=== PATIENT | female | born 1975 | race Caucasian/White ===

== ENCOUNTER 2023-09-26 07:21 | Emergency (ER) | payer OTHER ==
[~2023-09-26] VITALS: Ht 170.2 cm; Wt 65.8 kg
[2023-09-26 07:23] VITALS: BP 129/91; PULSE 72; RESP 19; TEMP 98.1; O2SAT 95
[2023-09-26] MEDS: LIDOCAINE 5% 1 EA PATCH TP ONE (07:46)
[2023-09-26] MEDS: IBUPROFEN 600 MG TAB PO ONE (07:46)
[2023-09-26] MEDS ORDERED: IBUP-2218 PO (08:36)
[2023-09-26] MEDS ORDERED: ACET-10509 PO (08:36)
[2023-09-26] MEDS ORDERED: ACETAMINOPHEN EXTRA STRENGTH 500 MG TAB ONE (08:39)
[2023-09-26] MEDS: ACETAMINOPHEN EXTRA STRENGTH 500 MG TAB PO ONE (08:42)
[2023-09-26 09:15] VITALS: BP 122/82; PULSE 78; RESP 16; TEMP 98.1; O2SAT 99
== END 2023-09-26 09:15 | disposition home or self-care (01) ==
LOC: MED 07:21
DX: S16.1XXA Strain of muscle, fascia and tendon at neck level, initial encounter (principal); S40.022A Contusion of left upper arm, initial encounter; M25.512 Pain in left shoulder; R07.89 Other chest pain; Z79.899 Other long term (current) drug therapy; V89.2XXA Person injured in unspecified motor-vehicle accident, traffic, initial encounter; Y93.89 Activity, other specified; Y92.410 Unspecified street and highway as the place of occurrence of the external cause; Y99.8 Other external cause status
CPT/HCPCS: 71045; 72050; 99284